=== PATIENT | male | born 1935 | race Caucasian/White ===

== ENCOUNTER 2020-06-01 07:57 | Day surgery (SDC) | payer OTHER ==
[~2020-06-01] VITALS: Ht 177.8 cm; Wt 105.0 kg
[~2020-06-01 07:57] MED LIST: AMLO5 PO; ASPI325 PO; ASPI325EC PO; CARV3.125 PO; DONE10 PO; DOXA4 PO; FURO40 PO; Furosemide40 MG PO; HYDR10 PO; HYDRA25 PO; LAMO100 PO; LOSA50 PO; PANT40 PO; POTA10T PO; Prinivil10 MG PO; QUET25 PO; Seroquel50 MG PO; Vitamin D2000 UNIT PO
--- NOTE | 2020-06-01 11:40 | NUR ---
PT TO RECOVERY ROOM POST PROCEDURE. PT IS AWAKE AND CONVERSIN APPROPRIAELY; DENIES PAIN POST PROCEDURE. MONITOR PACED RHYTHM 60-70'S, B/P 175/79, AFEBRILE, SPO2 93% RA. L CHEST PACEMAKER SITE NO SWELLING/HEMATOMA, TELFA AND TEGADERM DRSG INTACT. PT HAD SLING PLACED TO L ARM. PT'S AT BEDSIDE ATTENTIVE.
[2020-06-01] MEDS ORDERED: CEPH500 PO (12:01)
--- NOTE | 2020-06-01 12:05 | NUR ---
PT TOOK LUNCH WITHOUT ISSUE. PT AMB TO BATHRROM, GAIT SLIGHTLY UNSTEADY, VOIDED QS; SITE UNCHANGED WITH ACTIVITY.
--- NOTE | 2020-06-01 14:10 | NUR ---
PT TO RADIOLOGY FOR 2 VIEW CXR VIA W/C.
--- NOTE | 2020-06-01 14:25 | NUR ---
PT RETURNED FROM RADIOLOGY.
--- NOTE | 2020-06-01 15:12 | NUR ---
DR KEN NOTIFIED OF PT'S ELEVATED B/P, ORDERS RECEIVED; ADMINISTERED 10MG IV HYDRALAZINE.
--- NOTE | 2020-06-01 16:15 | NUR ---
PT GOT DRESSED WITH ASSISTANCE FROM . PT HAD SOME TRANSIENT NAUSEA WHEN GETTING DRESSED, NO EMESIS; RESOLVED WITHIN MINUTES. PT'S IV REMOVED-CANNULA INTACT.
--- NOTE | 2020-06-01 16:20 | NUR ---
PT AND RECEIVED DISCHARGE INSTRUCTIONS, MED LIST, AFTER CARE INSTRUCTIONS, AND DR KEN PACEMAKER INSTRUCTIONS; VERBALIZED GOOD UNDERSTANDING. PT LEFT FACILITY VIA W/C, CONDITION STABLE.
== END 2020-06-01 16:20 | disposition home or self-care (01) ==
LOC: MHTC 07:57 → ICUE 10:23 → MHTC 13:14
DX: I49.5 Sick sinus syndrome (principal); G47.33 Obstructive sleep apnea (adult) (pediatric); I12.9 Hypertensive chronic kidney disease with stage 1 through stage 4 chronic kidney disease, or unspecified chronic kidney disease; N18.9 Chronic kidney disease, unspecified; G30.9 Alzheimer's disease, unspecified; F02.80 Dementia in other diseases classified elsewhere, unspecified severity, without behavioral disturbance, psychotic disturbance, mood disturbance, and anxiety; E66.9 Obesity, unspecified; Z68.33 Body mass index [BMI] 33.0-33.9, adult; Z79.82 Long term (current) use of aspirin; Z79.899 Other long term (current) drug therapy; Z86.73 Personal history of transient ischemic attack (TIA), and cerebral infarction without residual deficits; Z66 Do not resuscitate
CPT/HCPCS: 33208; 71046; 76937; 99152; 99153; C1785; C1894; C1898; J0360; J0690; J1644; J2250; J3010; J7030; J7040